=== PATIENT | male | born 1965 | race Caucasian/White ===

== ENCOUNTER 2019-11-16 09:03 | Emergency (ER) | payer MEDICAID, SELFPAY ==
--- NOTE | ~2019-11-16 | XR_ITS ---
EXAMINATION: XR chest 2V DATE: 11/16/2019 10:15 INDICATION: Cough. TECHNIQUE: Frontal and lateral views of the chest were obtained. COMPARISON: None. FINDINGS: The chest demonstrates clear lungs without pneumonia, pleural effusion, or pneumothorax. Th e heart size is normal. IMPRESSION: 1. No acute cardiopulmonary disease. Reviewed, dictated and finalized at location A. [employer]
[2019-11-16 09:24] VITALS: BP 132/65; PULSE 103; RESP 16; TEMP 37.6; O2SAT 95
--- NOTE | 2019-11-16 09:28 | ECG_ITS ---
Measurements Intervals [place] Rate: 102 P: 146 PA: 148 QRS: -14 QRSD: 104 T: 149 QT: 326 QTc: 425 Interpretive Statements ECTOPIC ATRIAL TACHYCARDIA POSSIBLE LEFT ATRIAL ENLARGEMENT BORDERLINE ST-T WAVE ABNORMALITY- LATERAL LEADS BASELINE ARTIFACT- I, III, AVL, AVF ABNORMAL ECG Electronically Signed On 11-16-2019 9:38:44 [employer] by Suraj Her D.O.
[2019-11-16 09:51] VITALS: PULSE 97; RESP 18
[2019-11-16] MEDS: IPRATROPIUM BR 0.02% INH SOLN 0.5 MG/2.5 ML VIAL INHALATION (09:51)
[2019-11-16] MEDS: ALBUTEROL SULFATE NEB 2.5 MG/0.5 ML INH 5 MG INHALATION (09:51)
[2019-11-16 09:57] LABS: Basophils Absolute Auto 0.1 K/mm3 (0.0-0.1); Basophils Percent Auto 0.7 % (0.2-1.2); Eosinophils Absolute Auto 0.2 K/mm3 (0-0.3); Eosinophils Percent Auto 2.1 % (0-4.4); Hematocrit 43.5 % (42.0-52.0); Hemoglobin 13.9 g/dL (14.0-18.0); Immature Granulocyte Absolute 0.04 K/mm3 (0.00-0.031); Immature Granulocyte Percent A 0.5 % (0-0.5); Lymphocytes Absolute Auto 1.01 K/mm3 (0.9-3.2); Lymphocytes Percent Auto 12.3 % (18.3-44.2); Mean Corpuscular Hemoglobin 28.5 pg (26-34); Mean Corpuscular Volume 89.3 fl (80-100); Monocytes Absolute Auto 0.8 K/mm3 (0.1-0.6); Monocytes Percent Auto 10.1 % (2.6-8.5); Neutrophils Absolute Auto 6.1 K/mm3 (1.3-6.7); Neutrophils Percent Auto 74.3 % (45.5-73.1); Platelet Count Result 242 k/mm3 (150-375); Red Blood Count 4.87 M/mm3 (4.6-6.20); Red Cell Distribution Width 14.2 % (11.5-14.5); White Blood Count 8.2 K/mm3 (4.5-10.0)
[2019-11-16 10:00] VITALS: PULSE 99; RESP 18
[2019-11-16 10:13] LABS: Alanine Aminotransferase 19 U/L (4-50); Albumin Level 4.1 g/dL (3.5-5.1); Alkaline Phosphatase 74 U/L (38-126); Aspartate Amino Transferase 24 U/L (17-59); Bilirubin,Total 0.6 mg/dL (0.2-1.3); Blood Urea Nitrogen 12 mg/dL (9-20); Calcium 8.9 mg/dL (8.4-10.2); Carbon Dioxide 29 mmol/L (22-30); Chloride 98 mmol/L (98-107); Estimated CRCL calculation 175 ml/min; Estimated Glomerular Filt Rate > 60; Glucose 111 mg/dL (75-110); Potassium 4.1 mmol/L (3.4-5.0); Sodium 136 mmol/L (137-145)
[2019-11-16 10:21] LABS: NT Pro B Type Natriuretic Pept 27 PG/ML (5-100)
[2019-11-16 10:24] LABS: Troponin I < 0.012 ng/mL (0.000-0.034)
--- NOTE | 2019-11-16 17:28 | ED.SOB ---
HPI - SOB/Dyspnea General Chief Complaint: Shortness of Breath/Dyspnea Stated Complaint: cough, fever Time Seen by Provider: 11/16/19 09:12 Source: patient Mode of arrival: ambulatory Limitations: no limitations History of Present Illness HPI Narrative: Patient presents with chief complaint of feeling short of breath with exertion over the past few weeks. Patient states that he is a smoker. He also reports pain across his chest but only when he bends over to tie his shoes. Patient refers to the pain as his fat pain. He states that it resolves as soon as he sits up. Patient denies any chest pain at this time. Patient reports feelings of chest congestion. Patient states that he has not seen a doctor in approximately 10 years since his previous primary care physician . Patient states that he feels short of breath with exertion such as walking multiple blocks at a time. Otherwise he does not feel short of breath. Patient reports having some occasional swelling to his lower extremities which resolves with elevation and rest. Patient denies any chronic medical diagnoses or daily medications. Related Data Home Medications Medication Instructions Recorded Confirmed No Home Medications 11/16/19 11/16/19 Allergies Allergy/AdvReac Type Severity Reaction Status Date / Time codeine Allergy Itching Verified 11/16/19 09:28 Review of Systems Review of Systems: Narrative: CONSTITUTIONAL: Denies fever, chills, or sweats. EYES: Denies visual changes, redness, or discharge. ENT: Reports congestion denies rhinorrhea, sore throat, or otalgia. CARDIOVASCULAR: Denies chest pain, palpitations, or edema. RESPIRATORY: Reports cough and exertional dyspnea. GASTROINTESTINAL: Denies abdominal pain, nausea, vomiting, or diarrhea. GENITOURINARY: Denies dysuria or hematuria. SKIN: Denies rash or itching. MUSCULOSKELETAL: Denies back pain, joint pain, or myalgia. NEUROLOGIC: Denies headache, numbness, dizziness, or weakness. PSYCHIATRIC: Denies anxiety or depression. [facility] Social History Social History (Updated 11/16/19 @ 17:33 by Rebeca English PA-C) Smoking status: Current every day smoker Alcohol use details: occasional Other substance usage details: none Exam Narrative: Exam Narrative: GENERAL: Well-appearing, well-nourished, and in no acute distress. Patient is obese. HEAD: Normocephalic, atraumatic. EYES: PERRLA and EOMI. ENT: Nares clear, no rhinorrhea or epistaxis. Mucous membranes moist. Oropharynx without tonsillar hypertrophy exudate or other lesions. Bilateral TMs pearly miller nonbulging NECK: Supple. No adenopathy or masses. No carotid bruits or JVD CHEST:No respiratory distress or tachypnea. Diffuse wheezing bilaterally. No rales or rhonchi HEART: Regular rate and rhythm. No murmur heard. Normal peripheral pulses. ABDOMEN: Soft, nontender, nondistended, normal active bowel sounds. EXTREMITIES: Normal range of motion. No pitting edema. Venous stasis changes noted without weeping blisters. No calf tenderness. SKIN: Warm, dry, no rash. NEURO: No focal deficits. Alert and oriented x3. PSYCH: Normal mood and affect. Course Course Emergency Course: Patient demanded to be signed out AMA before I could discuss with him the findings of his lab work and x-ray. Per nurse he ambulated out without issue and did not show any signs of respiratory distress at this time. Vital Signs Vital signs: Vital Signs Temperature 99.7 F H 11/16/19 09:24 Pulse Rate 103 H 11/16/19 09:24 Respiratory Rate 16 11/16/19 09:24 Blood Pressure 132/65 11/16/19 09:24 Pulse Oximetry 95 11/16/19 09:24 Temperature 99.7 F H 11/16/19 09:24 Pulse Rate 99 11/16/19 10:00 Respiratory Rate 18 11/16/19 10:00 Blood Pressure 132/65 11/16/19 09:24 Pulse Oximetry 95 11/16/19 09:24 MDM - SOB/Dyspnea MDM Narrative Medical decision making narrative: Working patient up for CHF, influenza, pneumonia. Patient i
== END 2019-11-16 11:07 | disposition left against medical advice (07) ==
LOC: ANHED 09:41
PROVIDERS: Physician Assistant; Emergency Provider Emergency Medicine
DX: J44.1 Chronic obstructive pulmonary disease with (acute) exacerbation (principal); F17.200 Nicotine dependence, unspecified, uncomplicated
CPT/HCPCS: 36415; 71046; 80053; 83880; 84484; 85025; 87804; 93005; 94640; 99284

== ENCOUNTER 2021-05-19 16:52 | Emergency (ER) | payer OTHER, SELFPAY ==
[2021-05-19 17:13] VITALS: BP 118/62; PULSE 95; RESP 20; TEMP 36.2; O2SAT 97
--- NOTE | 2021-05-19 17:14 | ED.MALEGU ---
HPI - Male Genitourinary General Chief complaint: Urogenital-Male Stated complaint: Side Pain Time Seen by Provider: 05/19/21 17:19 Source: patient and RN notes reviewed Mode of arrival: ambulatory Limitations: no limitations History of Present Illness HPI Narrative: 55-year-old male presents to the [facility] with complaints of right flank pain. States when he tried urinating he sees blood. Has a history of kidney stones. States the pain started this morning. Has taken 2 unknown pain pills from a friend which has helped with pain. But still having nausea and discomfort right CVA area radiating into the groin. Patient also reports that he was having pain in his lower back and thought he had to have a bowel movement, was unable to have a bowel movement. Reports nausea without vomiting. Trouble with urination. Denies abdominal pain, chest pain. Denies fevers. Related Data Home Medications Medication Instructions Recorded Confirmed No Home Medications 11/16/19 11/16/19 Allergies Allergy/AdvReac Type Severity Reaction Status Date / Time codeine Allergy Itching Verified 05/19/21 17:28 Review of Systems Review of Systems: All systems reviewed & are unremarkable except as noted in HPI and below Constitutional: Constitutional: Reports no additional constitutional complaints, Denies chills and Denies fever(s) Eyes: Eyes: Reports no additional eye complaints ENT: Reports system reviewed and no additional complaints, except as documented Respiratory: Respiratory: Reports no additional respiratory complaints Gastrointestinal: Gastrointestinal: Reports as per HPI, Denies abdominal pain and Reports nausea Genitourinary: Genitourinary: Reports as per HPI, Reports hematuria and Reports dysuria Musculoskeletal: Musculoskeletal: Reports as per HPI and Reports back pain (Right lower into right groin) Integumentary/Breasts: Skin/Breast: Reports system reviewed and no additional complaints, except as docu Neurologic: Reports system reviewed and no additional complaints, except as documented Psychiatric: Psychiatric: Reports no additional psychiatric complaints Allergic/Immunologic: Allergic/Immunologic: Reports no additional allergic/immunologic complaints PMF Past Medical History Medical History (Updated 05/19/21 @ 17:37 by Coleen Lee) Drug use Clean since 2019 Kidney stone Social History Social History Smoking status: Current every day smoker Alcohol use details: occasional Other substance usage details: none Comments Patient states she has not seen a doctor in 20 years. At the time of my signature, I reviewed and agree with the nursing past medical, surgical, social, and family history. There is no relevant family history pertinent to the patient complaint. Exam Const: General: no acute distress and alert Nutritional Appearance: well nourished and obese morbidly obese Orientation/consciousness: patient oriented x3 HENMT: Head: normal to inspection Neck: Neck: normal visual inspection, no lymphadenopathy and no meningeal signs Chest: Chest palpation & inspection: normal inspection of the chest Resp: Effort & Inspection: normal respiratory effort and no use of accessory muscles Auscultation: clear to auscultation bilaterally Cardio: Rate: regular rate Rhythm: regular rhythm GI: GI Palp: Yes Soft to palpation, No Tenderness to palpation present (GI) and No Guarding due to palpation present (GI) : General: Yes CVA tenderness on the right Back/Spine/Pelvis: Back: CVA tenderness (Right) Skin: General skin exam: normal color Rashes: no rashes Neuro: General: patient oriented x3, moves all extremities, no meningeal signs and no focal motor deficits Speech: normal speech Gait exam (Neuro): Normal gait present Extrem: General: normal to inspection Psych: Appearance: grossly normal and well kempt Mental Status: mental status gr
== END 2021-05-19 17:35 | disposition short-term general hospital (02) ==
PROVIDERS: Emergency Provider Nurse Practitioner
DX: R10.9 Unspecified abdominal pain (principal)
CPT/HCPCS: 81003; 99212; G0463

== ENCOUNTER 2021-05-19 17:50 | Emergency (ER) | payer OTHER, SELFPAY ==
--- NOTE | ~2021-05-19 | CT_ITS ---
EXAMINATION: CT abdomen pelvis wo con DATE: 05/19/2021 22:25 INDICATION: Kidney stone presenting with hematuria and right flank pain. TECHNIQUE: Computed tomography (CT) of the abdomen and pelvis was performed without intravenous contr ast. Automated exposure control and iterative reconstruction technique were employed. The dose-length product was 1587.67 mGy-cm. COMPARISON: None FINDINGS: Minimal atelectasis at the right posterior sulcus. Heart size is normal. No pericardial or pleural ef fusion. Multiple calcified gallstones within the normal-appearing gallbladder. Liver, spleen, pancrea s, right kidney and bilateral adrenal glands are normal. 11 mm stone at the left renal pelvis and 5 m m stone at a lower pole calyx of the left kidney. No stones seen along the course of the normal appea ring ureters. 2-3 mm stone at the bladder near but appearing slightly more caudal the right ureterove sicular junction suggests a recently passed stone. No hydroureter or hydronephrosis. Suggestion of pr ior prostatectomy. Bowels including the appendix are normal. No free intraperitoneal gas or fluid. No pathologically enlarged abdominal or pelvic lymphadenopathy. Severe thoracolumbar spondylosis. IMPRESSION: 1. Left nephrolithiasis and 2-3 mm stone at the bladder near but appearing slightly more caudal than the right ureterovesicular junction suggesting a recently passed stone. No hydroureter or hydronephro sis. Line 2. Cholelithiasis. Reviewed, dictated and finalized at location A. IMPRESSION: 1. Left nephrolithiasis and 2-3 mm stone at the bladder near but appearing slig htly more caudal than the right ureterovesicular junction suggesting a recently passed stone. No hydroureter or hydronephrosis. Line 2. Cholelithiasis.
[2021-05-19 18:32] VITALS: BP 155/110; PULSE 92; RESP 18; TEMP 36.7; O2SAT 97
[2021-05-19 18:44] LABS: Basophils Absolute Auto 0.1 K/mm3 (0.0-0.1); Basophils Percent Auto 0.5 % (0.2-1.2); Eosinophils Absolute Auto 0.1 K/mm3 (0-0.3); Hematocrit 50.3 % (42.0-52.0); Hemoglobin 15.9 g/dL (14.0-18.0); Immature Granulocyte Absolute 0.05 K/mm3 (0.00-0.031); Immature Granulocyte Percent A 0.4 % (0-0.5); Lymphocytes Absolute Auto 2.39 K/mm3 (0.9-3.2); Lymphocytes Percent Auto 17.3 % (18.3-44.2); Mean Corpuscular HGB Conc 31.6 g/dl (32-36); Mean Corpuscular Hemoglobin 29.1 pg (26-34); Mean Platelet Volume 9.5 fl (7.4-10.4); Monocytes Absolute Auto 0.7 K/mm3 (0.1-0.6); Monocytes Percent Auto 5.2 % (2.6-8.5); Neutrophils Absolute Auto 10.5 K/mm3 (1.3-6.7); Neutrophils Percent Auto 75.6 % (45.5-73.1); Platelet Count Result 253 k/mm3 (150-375); Red Blood Count 5.47 M/mm3 (4.6-6.20); White Blood Count 13.8 K/mm3 (4.5-10.0)
[2021-05-19 18:56] LABS: Anion Gap 5 mmol/L (8-16); Blood Urea Nitrogen 14 mg/dL (9-20); Carbon Dioxide 30 mmol/L (22-30); Chloride 101 mmol/L (98-107); Estimated CRCL calculation 143 ml/min; Estimated Glomerular Filt Rate > 60; Glucose 109 mg/dL (65-110); Potassium 3.8 mmol/L (3.4-5.0); Sodium 136 mmol/L (137-145)
[2021-05-19 18:58] LABS: Add Urine Microscopic? YES; Appearance Urine Cloudy (Clear); Bilirubin Urine Negative (Negative); Blood Urine 3+ (Negative); Color Urine Yellow (Yellow); Glucose Urine UA Negative (Negative); Ketones Urine Negative (Negative); Leukocyte Esterase Ur Negative LEU/UL (Negative); Nitrate Urine Negative (Negative); Protein Urine 2+ mg/dL (Negative); RBC Urine >75 /hpf (0-2); Specific Grav Ur 1.024 (1.001-1.035)
--- NOTE | 2021-05-19 22:41 | ED.ABDPAIN ---
HPI - Abdominal Pain General Chief Complaint: Abdominal Pain Stated Complaint: right flank pain Time Seen by Provider: 05/19/21 20:40 Source: patient and RN notes reviewed Mode of arrival: ambulatory Limitations: no limitations History of Present Illness HPI narrative: Patient is 55 years old white male presents with pain at the right flank area started at 10 AM today, associated with nausea and radiation of pain to right lower quadrant. Patient had history of kidney stone, patient also reports some blood in the urine today. Patient denies any fever, Related Data Allergies Allergy/AdvReac Type Severity Reaction Status Date / Time codeine Allergy Itching Verified 05/19/21 20:26 Review of Systems Review of Systems: CONSTITUTIONAL: Denies fever, chills, or sweats. EYES: Denies visual changes, redness, or discharge. ENT: Denies rhinorrhea, congestion, sore throat, or otalgia. CARDIOVASCULAR: Denies chest pain, palpitations, or edema. RESPIRATORY: Denies cough or dyspnea. GASTROINTESTINAL: Denies abdominal pain, nausea, vomiting, or diarrhea. GENITOURINARY: Denies dysuria or hematuria. SKIN: Denies rash or itching. MUSCULOSKELETAL: Denies back pain, joint pain, or myalgia. NEUROLOGIC: Denies headache, numbness, or weakness. PSYCHIATRIC: Denies anxiety or depression. [facility] Past Medical History Medical History Drug use Clean since 2019 Kidney stone Social History Social History Smoking status: Current every day smoker Alcohol use details: occasional Other substance usage details: none Exam Narrative: General appearance: Well-developed, well-nourished Skin: Normal color Head: Normocephalic, nontraumatic Eyes: Clear conjunctiva ENT: Oropharynx normal, ears normal, nose normal Neck: Supple, nontender Chest and respiratory: Airway patent, no respiratory distress, no accessory muscle use Heart: Regular rate/rhythm Abdomen: Soft, mild tenderness right flank, no organomegaly, quiet bowel sounds Vascular: Normal peripheral pulses, normal capillary refill. 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 Labs, CT abdomen pelvis without contrast, UA ordered. Work-up showed that patient had kidney stone distal to the ureterovesicular junction which high likely in the bladder right now. Patient pain resolved, Differential Diagnosis Differential diagnosis: Likely calculus of kidney, constipation and diverticulitis Lab Data Result diagrams: 05/19/21 18:38 05/19/21 18:38 Labs: Lab Results 05/19/21 05/19/21 05/19/21 Range/Units 18:38 18:38 18:44 WBC 13.8 H (4.5-10.0) K/mm3 RBC 5.47 (4.6-6.20) M/mm3 Hgb 15.9 (14.0-18.0) g/dL Hct 50.3 (42.0-52.0) % MCV 92.0 (80-100) fl MCH 29.1 (26-34) pg MCHC 31.6 L (32-36) g/dl RDW 14.0 (11.5-14.5) % Plt Count 253 (150-375) k/mm3 MPV 9.5 (7.4-10.4) fl Immature Gran % (A
[2021-05-19] MEDS: ONDANSETRON INJ 4 MG/2 ML VIAL IV PUSH (23:11)
[2021-05-19] MEDS: KETOROLAC 30 MG/ML VIAL (*BKC) IV PUSH (23:11)
[2021-05-19] MEDS: TAMSULOSIN HCL 0.4 MG CAPSULE PO (23:11)
== END 2021-05-19 23:20 | disposition home or self-care (01) ==
PROVIDERS: Emergency Provider Emergency Medicine
DX: N20.0 Calculus of kidney (principal); R31.9 Hematuria, unspecified; Z87.442 Personal history of urinary calculi; F17.200 Nicotine dependence, unspecified, uncomplicated
CPT/HCPCS: 36415; 74176; 80048; 81001; 81003; 85025; 87077; 87086; 87088; 87186; 96374; 96375; 99284; A9270; J1885; J2405

== ENCOUNTER 2022-04-10 06:40 | Emergency (ER) | payer OTHER, SELFPAY ==
[2022-04-10] VITALS (7 sets, daily range): BP systolic 153–163; BP diastolic 83–98; PULSE 73–92; RESP 16–20; TEMP 36.6; O2SAT 93–100
--- NOTE | ~2022-04-10 | CT_ITS ---
EXAMINATION: CT abdomen pelvis wo con DATE: 04/10/2022 07:53 INDICATION: Left flank pain. TECHNIQUE: Computed tomography (CT) of the abdomen and pelvis was performed without intravenous contr ast. The dose-length product was 1543.80 mGy-cm. Automated exposure control and iterative reconstruct ion technique were employed. COMPARISON: CT dated 05/19/2021 FINDINGS: Lung bases are unremarkable. Heart size normal. No significant pleural or pericardial effus ion. Fatty infiltration of the liver. There are gallstones. The spleen, pancreas, adrenal glands and right kidney are unremarkable. There are left renal stones, largest in the left renal pelvis measurin g 1.4 x 1 cm. Bladder is unremarkable. No ureteral stones or hydronephrosis. Nonobstructive bowel gas pattern. Normal appendix. No abnormal pelvic masses or fluid collections. Moderate-severe lower thor acic and lumbar spondylosis. No acute osseous abnormality. IMPRESSION: 1. Left nephrolithiasis. 2: Cholelithiasis. Reviewed, dictated and finalized at location A.
[2022-04-10 06:58] LABS: Basophils Absolute Auto 0.1 K/mm3 (0.0-0.1); Basophils Percent Auto 0.5 % (0.2-1.2); Eosinophils Absolute Auto 0.2 K/mm3 (0-0.3); Immature Granulocyte Absolute 0.04 K/mm3 (0.00-0.031); Immature Granulocyte Percent A 0.4 % (0-0.5); Lymphocytes Absolute Auto 3.05 K/mm3 (0.9-3.2); Lymphocytes Percent Auto 27.8 % (18.3-44.2); Mean Corpuscular HGB Conc 31.9 g/dl (32-36); Mean Corpuscular Hemoglobin 29.5 pg (26-34); Mean Corpuscular Volume 92.5 fl (80-100); Mean Platelet Volume 9.3 fl (7.4-10.4); Monocytes Absolute Auto 0.7 K/mm3 (0.1-0.6); Monocytes Percent Auto 6.4 % (2.6-8.5); Neutrophils Absolute Auto 6.9 K/mm3 (1.3-6.7); Neutrophils Percent Auto 62.9 % (45.5-73.1); Platelet Count Result 231 k/mm3 (150-375); Red Blood Count 5.08 M/mm3 (4.6-6.20); Red Cell Distribution Width 14.5 % (11.5-14.5)
[2022-04-10 07:11] LABS: Alanine Aminotransferase 21 U/L (6-50); Albumin Level 4.2 g/dL (3.5-5.1); Alkaline Phosphatase 75 U/L (38-126); Anion Gap 1 mmol/L (8-16); Aspartate Amino Transferase 25 U/L (17-59); Bilirubin,Total 0.6 mg/dL (0.2-1.3); Blood Urea Nitrogen 12 mg/dL (9-20); Calcium 8.8 mg/dL (8.4-10.2); Carbon Dioxide 34 mmol/L (22-30); Chloride 105 mmol/L (98-107); Estimated Glomerular Filt Rate > 60; Glucose 115 mg/dL (65-110); Lipase 58 U/L (23-300); Potassium 4.2 mmol/L (3.4-5.0); Sodium 140 mmol/L (137-145)
[2022-04-10 07:15] LABS: Appearance Urine Clear (Clear); Bilirubin Urine Negative (Negative); Blood Urine 2+ (Negative); Color Urine Yellow (Yellow); Glucose Urine UA Negative (Negative); Ketones Urine Negative (Negative); Leukocyte Esterase Ur Negative LEU/UL (Negative); Nitrate Urine Negative (Negative); Protein Urine 1+ mg/dL (Negative); Specific Grav Ur 1.025 (1.001-1.035); Urobilinogen Urine 0.2 mg/dL (<2.0)
[2022-04-10 07:22] LABS: Mucus Urine Rare /lpf; RBC Urine >75 /hpf (0-2); Squamous Epithelial Cell Urine Rare /hpf (Few)
[2022-04-10 07:24] LABS: Add Urine Microscopic? YES
--- NOTE | 2022-04-10 07:39 | ED.ABDPAIN ---
HPI - Abdominal Pain General Chief Complaint: Abdominal Pain Stated Complaint: left flank pain Time Seen by Provider: 04/10/22 07:38 Source: patient Mode of arrival: ambulatory Limitations: no limitations History of Present Illness HPI narrative: 56 years old white male morbidly obese history of kidney stone presents with left lower quadrant pain similar to his previous history of kidney stone started 2:30 AM. Radiating to left testicle. He denies any nausea, vomiting, hematuria, fever, chills. Related Data Allergies Allergy/AdvReac Type Severity Reaction Status Date / Time codeine Allergy Itching Verified 04/10/22 06:42 Review of Systems Review of Systems: All systems reviewed & are unremarkable except as noted in HPI and below PMFSH Past Medical History Medical History Drug use Clean since 2019 Kidney stone Social History Social History Smoking status: Current every day smoker Alcohol use details: occasional Other substance usage details: none Exam Narrative: General appearance: Well-developed, well-nourished. Patient is morbidly obese, no significant other at the bedside Skin: Normal color Head: Normocephalic, nontraumatic Eyes: Clear conjunctiva ENT: Oropharynx normal, ears normal, nose normal Neck: Supple, nontender Chest and respiratory: Airway patent, no respiratory distress, no accessory muscle use Heart: Regular rate/rhythm Abdomen: Soft, mild to moderate tenderness left flank and left lower quadrant no organomegaly, quiet bowel sounds Vascular: Normal peripheral pulses, normal capillary refill. 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 Work-up did not show any significant finding to explain his condition except hematuria. Passed kidney stone versus urinary tract infection is my concern. Patient will be discharged on Cipro to follow-up with urologist in 4 days. Vital Signs Vital signs: Vital Signs Temperature 36.6 C 04/10/22 06:40 Pulse Rate 73 04/10/22 06:40 Respiratory Rate 20 04/10/22 06:40 Blood Pressure 163/98 H 04/10/22 06:40 Pulse Oximetry 100 04/10/22 06:40 Oxygen Delivery Room Air 04/10/22 06:40 Temperature 36.6 C 04/10/22 06:40 Pulse Rate 92 04/10/22 08:47 Respiratory Rate 16 04/10/22 08:47 Blood Pressure 153/83 H 04/10/22 08:47 Pulse Oximetry 93 04/10/22 08:47 Oxygen Delivery Room Air 04/10/22 06:40 MDM - Abdominal Pain Lab Data Result diagrams: 04/10/22 06:52 04/10/22 06:52 Labs: Lab Results 04/10/22 04/10/22 04/10/22 Range/Units 06:52 06:52 07:05 WBC 11.0 H (4.5-10.0) K/mm3 RBC 5.08 (4.6-6.20) M/mm3 Hgb 15.0 (14.0-18.0) g/dL Hct 47.0 (42.0-52.0) % MCV 92.5 (80-100) fl MCH 29.5 (26-34) pg MCHC 31.9 L (32-36) g/dl RDW 14.5 (11.5-14.5) % Plt Count 231 (150-375) k/mm3 MPV 9.3 (7.4-10.4) fl Immature Gran % (Auto) 0.4 (0-0.5) % Neut % (Auto) 62.9 (45.5-73.1) % Lymph % (Auto) 27.8 (18.3-44.2) % [place] % (Auto) 6.4 (2.6-8.5) % Eos % (Auto) 2.0 (0-4.4) % Baso % (Auto) 0.5 (0.2-1.2) % Lymph # (Auto) 3.05 (0.9-3.2) K/mm3 [place] # (Auto) 0.7 H (0.1-0.6) K/mm3 Eos # (Auto) 0.2 (0-0.3) K/mm3 Baso # (Auto) 0.1 (0.0-0.1) K/mm3 Abs Immat Gran (auto) 0.04 H (0.00-0.031) K/mm3 Absolute Neuts (auto)
[2022-04-10] MEDS: SODIUM CHLORIDE 0.9% IV 1,000 ML 999 ML IV CONT (07:48)
--- NOTE | 2022-04-10 07:53 | PC.NURSE ---
Patient to CT
[2022-04-10] MEDS: MORPHINE SULFATE (*CRX) 4 MG/ML INJ IV PUSH (08:05)
[2022-04-10] MEDS: ONDANSETRON INJ 4 MG/2 ML VIAL IV PUSH (08:05)
== END 2022-04-10 09:42 | disposition home or self-care (01) ==
PROVIDERS: Family Medicine; Emergency Provider Emergency Medicine
DX: R10.32 Left lower quadrant pain (principal); R31.9 Hematuria, unspecified; F17.210 Nicotine dependence, cigarettes, uncomplicated
CPT/HCPCS: 36415; 74176; 80053; 81001; 83690; 85025; 96361; 96374; 96375; 99284; J2270; J2405; J7030

== ENCOUNTER 2022-10-07 08:36 | Emergency (ER) | payer OTHER, SELFPAY ==
--- NOTE | 2022-10-07 08:47 | ED.URI ---
HPI - URI/Sore Throat General Chief Complaint: Upper Respiratory Infection Stated Complaint: uri Time Seen by Provider: 10/07/22 08:47 Source: patient Mode of arrival: ambulatory Limitations: no limitations History of Present Illness HPI Narrative: Gopi is a 57-year-old male patient presenting to the clinic today with complaints of nasal congestion, sinus pain, and cough x1 month He reports he has also lost taste and smell. He has done 2 at home COVID test and they were both negative. MD elicited complaint: sore throat and nasal congestion Related Data Allergies Allergy/AdvReac Type Severity Reaction Status Date / Time codeine Allergy Itching Verified 04/10/22 06:42 Review of Systems Review of Systems: Pertinent positives per HPI. Patient denies any fever, chills, rash, headache, visual changes, dizziness, cough, shortness of breath, chest pain, palpitations, nausea, vomiting, diarrhea, constipation, abdominal pain, or any urinary issues. [facility] Past Medical History Medical History Drug use Clean since 2019 Kidney stone Social History Social History Smoking status: Current every day smoker Alcohol use details: occasional Other substance usage details: none Comments At the time of my signature, I reviewed and agree with the nursing past medical, surgical, social, and family history. There is no relevant family history pertinent to the patient complaint. Exam Narrative: General: Well-developed, morbidly obese, in no apparent distress Head: Normocephalic, atraumatic Eyes: Pupils equally round and reactive to light bilaterally, EOM intact, sclera and conjunctive clear, no discharge, lids normal Ears: TMs intact and clear, ear canals clear, no drainage, grossly hearing normal. Nose: Nares patent, yellow /green nasal discharge, severe inflammation, maxillary sinus tenderness. Mouth: Oral pharynx without lesions or masses, good dentition, MMM. postnasal drip Neck: Supple, trachea midline, no enlargement of anterior or posterior cervical nodes, no thyroid masses or goiter palpable. Cardio: Regular rate and rhythm, s1 and s2 normal, no murmur appreciated. Resp: Clear to auscultation bilaterally, no rhonchi, rales, wheezing or rubs Course Course Emergency Course: Portions of this record may have been created with voice recognition software. Level of Care: Express Care Visit Vital Signs Vital signs: Vital Signs Temperature 36.2 C L 10/07/22 08:51 Pulse Rate 76 10/07/22 08:51 Respiratory Rate 16 10/07/22 08:51 Blood Pressure 139/79 10/07/22 08:51 Pulse Oximetry 99 10/07/22 08:51 Oxygen Delivery Room Air 10/07/22 08:51 Temperature 36.2 C L 10/07/22 08:51 Pulse Rate 76 10/07/22 08:51 Respiratory Rate 16 10/07/22 08:51 Blood Pressure 139/79 10/07/22 08:51 Pulse Oximetry 99 10/07/22 08:51 Oxygen Delivery Room Air 10/07/22 08:51 Vital signs reviewed MDM - URI/Sore Throat MDM Narrative Medical decision making narrative: At the time of visit patient is resting comfortably on the exam table. I suspect patient has acute bacterial rhinosinusitis and will place him on prescription for Augmentin and prednisone. Supportive measures were discussed with the patient he voiced understanding of discharge instructions and agrees to treatment plan Differential Diagnosis Differential diagnosis: Likely upper respiratory infection, otitis media, sinusitis, viral infection, bronchitis, influenza, pharyngitis and other ( COVID) Discharge Plan Discharge Clinical Impression: Acute bacterial rhinosinusitis Patient Disposition: Home, Self-Care Condition: Stable Instructions: Antibiotic Form, Rhinosinusitis (ED) Additional Instructions: Take prescription medications only as prescribed- prednisone and Augmentin Increase fluids and stay we
[2022-10-07 08:51] VITALS: BP 139/79; PULSE 76; RESP 16; TEMP 36.2; O2SAT 99
== END 2022-10-07 09:01 | disposition home or self-care (01) ==
PROVIDERS: Emergency Provider Nurse Practitioner Family
DX: J01.90 Acute sinusitis, unspecified (principal); B96.89 Other specified bacterial agents as the cause of diseases classified elsewhere; F17.210 Nicotine dependence, cigarettes, uncomplicated
CPT/HCPCS: 99213; G0463

== ENCOUNTER 2023-05-19 19:37 | Emergency (ER) | payer OTHER, SELFPAY ==
--- NOTE | ~2023-05-19 | XR_ITS ---
EXAMINATION: XR chest 2V Exam Date/Time: 05/19/2023 19:55 CDT HISTORY: SOB Comparison: 11/16/2019; CT abdomen pelvis 04/10/2022. RESULT: Lines, tubes, and devices: None. Lungs and pleura: Clear. Cardiomediastinal silhouette: Stable. Other: No acute osseous or upper abdominal finding. IMPRESSION: No acute cardiopulmonary process. Reviewed, dictated and finalized at location K.
[2023-05-19 19:40] VITALS: BP 121/69; PULSE 85; RESP 20; TEMP 36.6; O2SAT 98
[2023-05-19 19:46] VITALS: BP 121/69; PULSE 85; RESP 20; TEMP 36.6; O2SAT 98
--- NOTE | 2023-05-19 20:07 | ED.URI ---
HPI - URI/Sore Throat General Chief Complaint: Upper Respiratory Infection Stated Complaint: SOB Time Seen by Provider: 05/19/23 20:04 Source: patient and RN notes reviewed Mode of arrival: ambulatory Limitations: no limitations History of Present Illness HPI Narrative: Patient presents today complaining of 3 day history of a productive cough, shortness of breath, fever up to 101.3. States symptoms have worsened since onset. States he has been sleeping sitting up as a his shortness of breath is worse when he lays flat to sleep. He has been taking Mucinex and Advil with mild relief. Smokes 2 packs per day. Denies history of asthma or COPD. Related Data Home Medications Medication Instructions Recorded Confirmed cetirizine 10 mg tablet mg 05/19/23 fluticasone propionate 50 intranasal 05/19/23 mcg/actuation nasal spray,suspension Allergies Allergy/AdvReac Type Severity Reaction Status Date / Time codeine Allergy Itching Verified 05/19/23 19:46 Review of Systems Review of Systems: CONSTITUTIONAL: Denies body aches, chills, or sweats.+ fever EYES: Denies visual changes, redness, or discharge. ENT: Denies rhinorrhea, congestion, sore throat, or otalgia. CARDIOVASCULAR: Denies chest pain, palpitations, or edema. RESPIRATORY: + cough, shortness of breath GASTROINTESTINAL: Denies abdominal pain, nausea, vomiting, or diarrhea. GENITOURINARY: Denies dysuria or hematuria. SKIN: Denies rash, itching, or wounds. MUSCULOSKELETAL: Denies back pain, joint pain, or myalgia. NEUROLOGIC: Denies headache, numbness, tingling, or weakness. PSYCH: Denies depression or anxiety. [facility] Past Medical History Medical History Drug use Clean since 2019 Kidney stone Social History Social History Smoking status: Current every day smoker Alcohol use details: occasional Other substance usage details: none Comments At time of signature, I have reviewed and agree with nursing past medical, surgical, social and family history unless otherwise noted. Please see nursing chart for further information. There is no relevant family history pertinent to the presenting complaint Exam Narrative: GENERAL: Mildly ill appearing, well-nourished, and in no acute distress. HEAD: Normocephalic, atraumatic. EYES: EOMI. No redness or drainage. Conjunctivae normal. ENT: Mucous membranes pink and moist. Nares clear. No rhinorrhea. TMs normal bilaterally. Throat normal. Uvula midline. NECK: Normal AROM. Supple. No lymphadenopathy. CHEST: No respiratory distress. Wheezing in bilateral lower lobes, rhonchi throughout. HEART: Regular rate and rhythm. No murmur appreciated. Normal peripheral pulses. ABDOMEN: Soft, nontender, nondistended, normal active bowel sounds. EXTREMITIES: Normal range of motion. No edema. SKIN: Warm, dry, no rash. Capillary refill normal. Normal skin turgor. NEURO: No focal deficits. Alert and oriented x3. Gait steady. PSYCH: Normal affect. No signs of depression or anxiety. Course Course Emergency Course: 2043-courses decreased, wheezing is slightly louder than before treatment. Patient states DuoNeb has helped him feel that he can take a deeper breath. Level of Care: Express Care Visit Vital Signs Vital signs: Vital Signs Temperature 97.9 F 05/19/23 19:40 Pulse Rate 85 05/19/23 19:40 Respiratory Rate 20 05/19/23 19:40 Blood Pressure 121/69 05/19/23 19:40 Pulse Oximetry 98 05/19/23 19:40 Oxygen Delivery Room Air 05/19/23 19:40 Temperature 97.9 F 05/19/23 19:46 Pulse Rate 85 05/19/23 19:46 Respiratory Rate 20 05/19/23 19:46 Blood Pressure 121/69 05/19/23 19:46 Pulse Oximetry 98 05/19/23 19:46 Oxygen Delivery Room Air 05/19/23 19:46 Reviewed. Pt has been instructed to follow up with his PCP regarding his elevated blood pressur
[2023-05-19] MEDS: ALBUTEROL SULFATE NEB 2.5 MG/3 ML INH INHALATION (20:12)
[2023-05-19] MEDS: IPRATROPIUM BR 0.02% INH SOLN 0.5 MG/2.5 ML VIAL INHALATION (20:12)
== END 2023-05-19 20:49 | disposition home or self-care (01) ==
PROVIDERS: Emergency Provider Nurse Practitioner; PCP Nurse Practitioner
DX: J40 Bronchitis, not specified as acute or chronic (principal); B34.9 Viral infection, unspecified; Z20.822 Contact with and (suspected) exposure to COVID-19; F17.200 Nicotine dependence, unspecified, uncomplicated
CPT/HCPCS: 71046; 87426; 94640; 99213; C9803; G0463

== ENCOUNTER 2024-07-10 08:57 | Emergency (ER) | payer OTHER, SELFPAY ==
--- NOTE | ~2024-07-10 | XR_ITS ---
XR chest 2V Ordering provider: Crista Jolley PA-C History: 58 years Male with . SOB COUGH, HX PE, BILATERAL LEG SWELLING . Comparison: May 19, 2023 FINDINGS: MEDIASTINUM: The cardiac silhouette is not enlarged. Slightly congestive desean. LUNGS: No infiltrates, effusions or pneumothorax. Prominent markings in the lower lobes. Early pneumonia is not excluded. OTHER: No free air under the diaphragm. Degenerative changes of the spine. IMPRESSION: Prominent markings in the lower lobes. Early pneumonia cannot be excluded. Follow-up advised. Reviewed, dictated and finalized at location A. IMPRESSION: Prominent markings in the lower lobes. Early pneumonia cannot be excluded. Foll ow-up advised.
--- NOTE | ~2024-07-10 | US_ITS ---
RIGHT LOWER EXTREMITY VENOUS ULTRASOUND Ordering provider: Crista Jolley PA-C History: . edema . Comparison: None. FINDINGS: --COMMON FEMORAL: Patent and free of thrombus. Normal compressibility, phasic flow and augmentation. --PROXIMAL SUPERFICIAL FEMORAL: Patent and free of thrombus. Normal compressibility, phasic flow and augmentation. --DISTAL SUPERFICIAL FEMORAL: Patent and free of thrombus. Normal compressibility, phasic flow and au gmentation. --POPLITEAL: Patent and free of thrombus. Normal compressibility, phasic flow and augmentation. --POSTERIOR TIBIAL: Patent and free of thrombus. Normal compressibility, phasic flow and augmentation . IMPRESSION: Negative right lower extremity venous US. No deep vein thrombosis. Reviewed, dictated and finalized at location A.
[2024-07-10 09:02] VITALS: BP 158/57; PULSE 85; RESP 22; O2SAT 96
--- NOTE | 2024-07-10 09:09 | ECG_ITS ---
Test Date: 2024-07-10 10:01:08 Measurements Intervals [place] Rate: 73 P: 53 [place]: 191 QRS: 3 QRSD: 92 T: 38 QT: 388 QTc: 428 Interpretive Statements SINUS RHYTHM BASELINE ARTIFACT- I, III, AVR, AVL, AVF NORMAL ECG No previous ECG available for comparison Electronically Signed On 07-10-2024 11:05:55 CDT by Suraj Her D.O.
--- NOTE | 2024-07-10 09:22 | PC.NURSE ---
Patient to US
[2024-07-10 10:00] LABS: Basophils Absolute Auto 0.1 K/mm3 (0.0-0.1); Basophils Percent Auto 0.6 % (0.2-1.2); Eosinophils Absolute Auto 0.4 K/mm3 (0-0.3); Eosinophils Percent Auto 4.6 % (0-4.4); Hematocrit 43.1 % (42.0-52.0); Hemoglobin 14.3 g/dL (14.0-18.0); Immature Granulocyte Absolute 0.04 K/mm3 (0.00-0.031); Immature Granulocyte Percent A 0.5 % (0-0.5); Lymphocytes Absolute Auto 2.81 K/mm3 (0.9-3.2); Mean Corpuscular HGB Conc 33.2 g/dl (32-36); Mean Corpuscular Hemoglobin 31.3 pg (26-34); Mean Corpuscular Volume 94.3 fl (80-100); Mean Platelet Volume 9.7 fl (7.4-10.4); Monocytes Absolute Auto 0.7 K/mm3 (0.1-0.6); Monocytes Percent Auto 7.4 % (2.6-8.5); Neutrophils Absolute Auto 4.8 K/mm3 (1.3-6.7); Neutrophils Percent Auto 54.9 % (45.5-73.1); Platelet Count Result 206 k/mm3 (150-375); Red Blood Count 4.57 M/mm3 (4.6-6.20); Red Cell Distribution Width 13.8 % (11.5-14.5); White Blood Count 8.8 K/mm3 (4.5-10.0)
[2024-07-10 10:09] LABS: Anion Gap 3 mmol/L (4-12); Blood Urea Nitrogen 14 mg/dL (9-20); Calcium 8.7 mg/dL (8.4-10.2); Carbon Dioxide 33 mmol/L (22-30); Chloride 103 mmol/L (98-107); Estimated CRCL calculation 185 ml/min; Estimated Glomerular Filt Rate > 60; Glucose 118 mg/dL (65-110); Potassium 3.9 mmol/L (3.4-5.0); Sodium 139 mmol/L (137-145)
[2024-07-10 10:10] LABS: Prothrombin Time 13.4 Seconds (11.1-14.7)
[2024-07-10 10:11] LABS: Partial Thromboplastin Time 28.9 Seconds (22.3-36.8)
--- NOTE | 2024-07-10 10:35 | ED.EXTPRO ---
HPI - Extremity Problem General Chief complaint: Extremity Problem,Nontraumatic Stated complaint: R leg swelling Time Seen by Provider: 07/10/24 09:09 Source: patient Mode of arrival: ambulatory Limitations: no limitations History of Present Illness HPI Narrative: This is a 58-year-old male that presents to the emergency department for right lower extremity swelling. Ongoing over the last couple of weeks. Associated with redness and pain. Also reports he has been more short of breath with exertion. He is a smoker. Denies any current known medical problems. Denies fevers or chest pain. Related Data Home Medications Medication Instructions Recorded Confirmed cetirizine 10 mg tablet mg 05/19/23 fluticasone propionate 50 intranasal 05/19/23 mcg/actuation nasal spray,suspension Allergies Allergy/AdvReac Type Severity Reaction Status Date / Time codeine Allergy Itching Verified 07/10/24 11:51 Review of Systems Review of Systems: CONSTITUTIONAL: Denies fever CARDIOVASCULAR: Reports edema. Denies chest pain RESPIRATORY: Reports dyspnea. All systems reviewed & are unremarkable except as noted in HPI and below [facility] Past Medical History Medical History Drug use Clean since 2019 Kidney stone Social History Social History Smoking status: Current every day smoker Alcohol use details: occasional Other substance usage details: none Exam Narrative: GENERAL: Well-appearing, obese, and in no acute distress. HEAD: Normocephalic, atraumatic. EYES: EOMI. NECK: Supple. No JVD CHEST: Clear to auscultation. No respiratory distress. No wheezes rales or rhonchi HEART: Regular rate and rhythm. No murmur heard. Normal peripheral pulses. EXTREMITIES: Normal range of motion. Bilateral 1+ pitting lower extremity edema, R>L. There is overlying redness and warmth bilaterally, R>L. Normal DP pulses. Normal sensation SKIN: Warm, dry, no rash. NEURO: No focal deficits. Alert and oriented x3. PSYCH: Normal mood and affect Course Course Emergency Course: Patient signed out AMA before finishing his workup/further treatment Vital Signs Vital signs: Vital Signs Pulse Rate 85 07/10/24 09:02 Respiratory Rate 22 H 07/10/24 09:02 Blood Pressure 158/57 H 07/10/24 09:02 Pulse Oximetry 96 07/10/24 09:02 Oxygen Delivery Room Air 07/10/24 09:02 Temperature 98 F 07/10/24 12:00 Pulse Rate 86 07/10/24 12:00 Respiratory Rate 18 07/10/24 12:00 Blood Pressure 155/90 H 07/10/24 12:00 Pulse Oximetry 97 07/10/24 12:00 Oxygen Delivery Room Air 07/10/24 09:02 MDM - Extremity (Nontraumatic) MDM Narrative Medical decision making narrative: Patient presents to the emergency department for right lower extremity pain and swelling. Also reporting shortness of breath. He is afebrile and nontoxic appearing. His vitals are stable. Lungs are clear on exam. Oxygen saturation is normal on room air. CBC without leukocytosis. Metabolic panel without acute findings. Inflammatory markers are elevated. EKG without acute changes and his baseline troponin is negative. Right lower extremity venous Doppler without evidence of DVT. Chest x-ray shows prominent lung markings in the lower lobe. Early pneumonia cannot be excluded. Do a D-dimer elevated. Attempted at CTA, but patient was too claustrophobic. Patient then signed out AMA before finishing his workup/further treatment. I did send antibiotics to the pharmacy to treat for cellulitis of his right leg Differential Diagnosis Differential diagnosis: Likely cellulitis, deep vein thrombosis of lower extremity and other (PE, pneumonia, heart failure, venous stasis changes) Lab Data Attestation: I reviewed the patient's lab results. 07/10/24 09:55 07/10/24 09:56 Labs: Lab Results 07/10/24 0
[2024-07-10 10:56] LABS: D Dimer 1.72 ug/mL (<0.48)
[2024-07-10 11:04] LABS: CRP 3.7 mg/dL (<1.0)
[2024-07-10 11:12] LABS: NT Pro B Type Natriuretic Pept 32 pg/mL (19.9-100); Troponin I < 0.012 ng/mL (0.000-0.034)
[2024-07-10 11:36] LABS: Erythrocyte Sedimentation Rate 44 mm/hr (0-20)
--- NOTE | 2024-07-10 11:56 | PC.NURSE ---
pt anxious about care being provided to pt in next room, pt asking to leave. willing to sign out AMA. EDP made aware, pt left AMA pt aware that antibx will be sent to [facility] in [place]
[2024-07-10 12:00] VITALS: BP 155/90; PULSE 86; RESP 18; TEMP 36.6; O2SAT 97
== END 2024-07-10 12:02 | disposition left against medical advice (07) ==
PROVIDERS: Emergency Provider Physician Assistant; PCP Nurse Practitioner
DX: L03.115 Cellulitis of right lower limb (principal); F17.200 Nicotine dependence, unspecified, uncomplicated; Z87.442 Personal history of urinary calculi
CPT/HCPCS: 36415; 71046; 80048; 83880; 84484; 85025; 85380; 85610; 85652; 85730; 86140; 93005; 93971; 99284

== ENCOUNTER 2024-12-09 10:11 | Emergency (ER) | payer OTHER, SELFPAY ==
[2024-12-09 10:12] VITALS: BP 183/93; PULSE 69; RESP 16; TEMP 36.6; O2SAT 99
--- NOTE | 2024-12-09 10:33 | ED.ABDPAIN ---
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 HISTORY OF KIDNEY STONE. HE DENIES ANY FEVER OR CHILLS. Related Data Home Medications ?Medication ?Instructions ?Recorded ?Confirmed ?Last Taken ?Type cetirizine 10 mg tablet mg 05/19/23 Unknown History fluticasone propionate 50 intranasal 05/19/23 Unknown History mcg/actuation nasal spray,suspension Allergies Allergy/AdvReac Type Severity Reaction Status Date / Time codeine Allergy Itching Verified 07/10/24 11:51 Review of Systems Review of Systems: All systems reviewed & are unremarkable except as noted in HPI and below PMFSH Past Medical History Medical History Drug use Clean since 2019 Kidney stone Social History Social History Smoking status: Current every day smoker Alcohol use details: occasional Other substance usage details: none Exam Narrative: GENERAL APPEARANCE: WELL-DEVELOPED, WELL-NOURISHED, MORBIDLY OBESE HEAD: NORMOCEPHALIC, NONTRAUMATIC EYES: CLEAR CONJUNCTIVA ENT: OROPHARYNX NORMAL, EARS NORMAL, NOSE NORMAL NECK: SUPPLE, NONTENDER CHEST AND RESPIRATORY: AIRWAY PATENT, NO RESPIRATORY DISTRESS, NO ACCESSORY MUSCLE USE HEART: REGULAR RATE/RHYTHM ABDOMEN: SOFT, MILD TENDERNESS LEFT FLANK AND LEFT GROIN, NO BRUISES OR SWELLING OR RASH VASCULAR: NORMAL PERIPHERAL PULSES, NORMAL CAPILLARY REFILL. 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, NO GROSS MOTOR DEFICIT Course Consultations Consultation #1: DR GLOVER OUTPATIENT FOLLOW-UP Date: 12/09/24 Time: 14:14 Vital Signs Vital signs: Vital Signs Temperature 36.6 C 12/09/24 10:12 Pulse Rate 69 12/09/24 10:12 Respiratory Rate 16 12/09/24 10:12 Blood Pressure 183/93 H 12/09/24 10:12 Pulse Oximetry 99 12/09/24 10:12 Temperature 36.6 C 12/09/24 10:12 Pulse Rate 69 12/09/24 10:12 Respiratory Rate 16 12/09/24 10:12 Blood Pressure 183/93 H 12/09/24 10:12 Pulse Oximetry 99 12/09/24 10:12 MDM - Abdominal Pain MDM Narrative Medical decision making narrative: I THINK PROBABLY URINE AWAY WORSE ON THE HEAD PATIENT PRESENTS WITH LEFT FLANK PAIN VITAL SIGNS SHOWING BLOOD PRESSURE 183/93 PHYSICAL EXAMINATION SHOWING MILD TENDERNESS LEFT FLANK LEFT LOWER QUADRANT DIFFERENTIAL DIAGNOSIS INCLUDE KIDNEY STONE, URINARY TRACT INFECTION, COLITIS, DIVERTICULITIS, CONSTIPATION BLOOD WORKUP TODAY INCLUDES CBC, CMP, LIPASE SHOWED WBC OF 11.6 OTHERWISE WITHIN NORMAL LIMIT URINE ANALYSIS SHOWING TRACE OF LEUKOCYTE ESTRACE, 3-[address] ABDOMEN AND PELVIS WITHOUT CONTRAST SHOWED Differential Diagnosis Differential diagnosis: Likely other ( ABOVE) Medical Records Attestation: I reviewed the patient's medical records. Lab Data Attestation: I reviewed the patient's lab results. 12/09/24 12:32 12/09/24 12:32 Labs: Lab Results 12/09/24 12/09/24 Range/Units 12:32 13:02 WBC 11.6 H (4.5-10.0) K/mm3 RBC 5.08 (4.6-6.20) M/mm3 Hgb 15.0 (14.0-18.0) g/dL Hct 44.5 (42.0-52.0) % MCV 87.6 (80-100) fl MCH 29.5 (26-34) pg MCHC 33.7 (32-36) g/dl RDW 13.6 (11.5-14.5) % Plt Count 258 (150-375) k/mm3 MPV 9.5 (7.4-10.4) fl Immature Gran % (Auto) 0.3 (0-0.5) % Neut % (Auto) 77.7 H (45.5-73.1) % Lymph % (Auto) 15.0 L (18.3-44.2) % [place] % (Auto) 6.0 (2.6-8.5) % Eos % (Auto) 0.7 (0-4.4) % Baso % (Auto) 0.3 (0.2-1.2) % Lymph # (Auto) 1.74 (0.9-3.2) K/mm3 [place] # (Auto) 0.7 H (0.1-0.6) K/mm3 Eos # (Auto) 0.1 (0-0.3) K/mm3 Baso # (Auto) 0.0 (0.0-0.1) K/mm3 Abs Immat Gran (auto) 0.03 (0.00-0.031) K/mm3 Absolute Neuts (auto) 9.0 H (1.3-6.7) K/mm3 Absolute Nucleated RBC 0.000 (0.0-0.012) K/mm3 Nucleated RBC % 0.0 (0.0-0.2) % Sodium 138 (137-145) mmol/L Potassium 4.0 (3.4-5.0) mmol/L Chloride 103 (98-107) mmol/L Carbon Dioxide 25 (22-30) mmol/L Anion Gap 10 (4-12) mmol/L BUN 19 (9-20) mg/dL Creatinine 0.90 (0.7-1.3) mg/dL Estim Creat Clear Calc 136 ml/min Estimated GFR > 60 (59 - ) Glucose 112 H (65-110) mg/dL Calcium 8.9 (8.4-10.2) mg/dL Total Bilirubin 0.8 (0.2-1.3) mg/dL AST 27 (17-59) U/L ALT 18 (6-50) U/L Alkaline Phosphatase 78 (38-126) U/L Total Protein 7.0 (6.3-8.2) g/dL Albumin 3.9 (3.5-5.1) g/dL Lipase 32 (23-300) U/L Urine Color Yellow (Yellow) Urine Appearance Clear (Clear) Urine pH 7.5 (5.0-9.0) Ur Specific [place] 1.021 (1.001-1.035) Urine Protein Trace (Negative) mg/dL Urine Glucose (UA) Negative (Negative) mg/dL Urine Ketones Negative (Negative) mg/dL Ur Blood (Man) Negative (Negative) Urine Nitrate Negative (Negative) Urine Bilirubin Negative (Negative) Urine Urobilinogen 1.0 (<2.0) mg/dL Leukocyte Esterase Rfl Trace H (Negative) SNEHA/UL Urine RBC 3-5 H (0-2) /hpf Urine WBC 0-5 (0-3) /hpf Ur Squamous Epith Cells None seen (Few) /hpf Urine Bacteria None seen /hpf Urine Casts 0-2 Imaging Data Radiologist's impression: ITS Impressions Abdomen/Pelvis CT 12/09/24 11:34 IMPRESSION: 1. Left nephrolithiasis with obstructing 9 mm from the proximal left ureter with moderate left hydronephrosis with perinephric stranding. Correlate with urinalysis to exclude associated ascending urinary tract infection. 2. Cholelithiasis. Critical Care Time Critical Care Time Critical Care Time: No Discharge Plan Discharge Clinical Impression: Kidney stone on left side Instructions: Antibiotic Form, Kidney Stones (ED) Additional Instructions: RETURN IF SYMPTOMS ARE WORSENING , CALL YOUR FAMILY PHYSICIAN FOR APPOINTMENT, TAKE TYLENOL, IBUPROFEN NEEDED FOR ACHES AND PAIN, CONTINUE HOME MEDICATIONS. ENCOURAGE FLUID INTAKE Patient Language: German Prescriptions: New ondansetron 4 mg tablet,disintegrating 4 mg PO Q4H 0 Days Qty: 10 0RF Rx Instructions: 1st dose 1-2 hr before radiation tamsulosin [Flomax] 0.4 mg capsule 0.4 mg PO DAILY Qty: 10 0RF ciprofloxacin HCl [Cipro] 500 mg tablet 500 mg PO Q12H Qty: 10 0RF No Action cetirizine 10 mg tablet fluticasone propionate 50 mcg/actuation spray,suspension INTRANASAL prednisone 50 mg tablet 50 mg PO DAILY 5 Days Qty: 5 0RF albuterol sulfate [ProAir HFA] 90 mcg/actuation HFA aerosol inhaler 2 puff INHALATION Q4-6H PRN (Reason: shortness of breath or wheezing) Qty: 18 0RF (DME) BreatheRite MDI Spacer Spacer See Rx Instructions .ROUTE .MEDSUPPLY Qty: 1 0RF Rx Instructions: As directed cephalexin 500 mg capsule 500 mg PO Q6H 10 Days Qty: 40 0RF Follow-up/Referrals: Rickey Chapa MD [Physician] - 12/11/24 Norberto,Yung Ferrara APRN [Primary Care Provider] -
[2024-12-09] MEDS: HYDROmorphone HCL INJ (*CRX) 1 MG/ML SYR 0.5 MG IV PUSH (12:35)
[2024-12-09] MEDS: TAMSULOSIN HCL 0.4 MG CAPSULE PO (12:36)
[2024-12-09] MEDS: ONDANSETRON INJ 4 MG/2 ML VIAL IV PUSH (12:36)
[2024-12-09] MEDS: SODIUM CHLORIDE 0.9% IV 1,000 ML 999 ML IV CONT (12:36)
[2024-12-09 12:42] LABS: Basophils Percent Auto 0.3 % (0.2-1.2); Eosinophils Absolute Auto 0.1 K/mm3 (0-0.3); Eosinophils Percent Auto 0.7 % (0-4.4); Hematocrit 44.5 % (42.0-52.0); Immature Granulocyte Absolute 0.03 K/mm3 (0.00-0.031); Immature Granulocyte Percent A 0.3 % (0-0.5); Lymphocytes Absolute Auto 1.74 K/mm3 (0.9-3.2); Mean Corpuscular HGB Conc 33.7 g/dl (32-36); Mean Corpuscular Hemoglobin 29.5 pg (26-34); Mean Corpuscular Volume 87.6 fl (80-100); Mean Platelet Volume 9.5 fl (7.4-10.4); Monocytes Absolute Auto 0.7 K/mm3 (0.1-0.6); Neutrophils Percent Auto 77.7 % (45.5-73.1); Platelet Count Result 258 k/mm3 (150-375); Red Blood Count 5.08 M/mm3 (4.6-6.20); Red Cell Distribution Width 13.6 % (11.5-14.5); White Blood Count 11.6 K/mm3 (4.5-10.0)
[2024-12-09 12:50] LABS: Alanine Aminotransferase 18 U/L (6-50); Albumin Level 3.9 g/dL (3.5-5.1); Alkaline Phosphatase 78 U/L (38-126); Anion Gap 10 mmol/L (4-12); Aspartate Amino Transferase 27 U/L (17-59); Bilirubin,Total 0.8 mg/dL (0.2-1.3); Blood Urea Nitrogen 19 mg/dL (9-20); Calcium 8.9 mg/dL (8.4-10.2); Carbon Dioxide 25 mmol/L (22-30); Chloride 103 mmol/L (98-107); Estimated CRCL calculation 136 ml/min; Estimated Glomerular Filt Rate > 60; Glucose 112 mg/dL (65-110); Lipase 32 U/L (23-300); Sodium 138 mmol/L (137-145)
--- NOTE | 2024-12-09 13:02 | PC.NURSE ---
Pt reports unable to provide urine sample at this time, provided with urinal. Pt verbalizes understanding to use call light after collecting sample.
[2024-12-09 13:14] LABS: Add Urine Microscopic? YES; Appearance Urine Clear (Clear); Bacteria Urine None Seen /hpf; Bilirubin Urine Negative (Negative); Blood Urine Negative (Negative); Color Urine Yellow (Yellow); Glucose Urine UA Negative (Negative); Ketones Urine Negative (Negative); Leukocyte Esterase Ur Trace LEU/UL (Negative); Nitrate Urine Negative (Negative); Non Pathogenic Casts 0-2; Protein Urine Trace mg/dL (Negative); Specific Grav Ur 1.021 (1.001-1.035); Squamous Epithelial Cell Urine None Seen /hpf (Few); WBC Urine 0-5 /hpf (0-3); pH Urine 7.5 (5.0-9.0)
[2024-12-09] MEDS: KETOROLAC 30 MG/ML VIAL (*BKC) IV PUSH (14:32)
[2024-12-09 14:37] VITALS: BP 156/76; PULSE 69; RESP 18; TEMP 36.8; O2SAT 97
--- NOTE | 2024-12-09 14:43 | WPDURCON ---
Assessment and Plan Assessment and plan (1) Kidney stone on left side: Code(s): N20.0 - Calculus of kidney Status: Acute Plan Discussed trial of MET, URS, ESWL. Cannot treat the stone on the weekend with ESWL, and he strongly desires to avoid a stent. He elects for MET, we discussed the low but real possibility of stone passage. Discussed that ESWL would be less likely to be successful with a BMI approaching 60. He will go home and call our office for follow up. Tamsulosin pain meds sunitha. Urology Consult Note HPI Date Seen: 12/09/24 Primary Care Provider: Yung Thornton, EYE TECHNICIAN Consult Narrative Narrative: Gopi Christianson Jr. is a 59 year old male with a history of stones currently here for flank pain. His pain is controlled in the ED and he desires to go home. Creat 0.9 WBC 11 UA with 3-[address] with a 9mm proximal left ureteral stone. He had a stone a few years ago and was counseled on a URS and chickened out because of the necessity of transurethral approach and never followed up. Review of Systems Review of Systems: All systems reviewed & are unremarkable except as noted in HPI and below PMFSH Past Medical History Medical History Drug use Clean since 2019 Kidney stone Social History Social History Smoking status: Current every day smoker Alcohol use details: occasional Other substance usage details: none Meds Home Medications and Allergies Home Medications ?Medication ?Instructions ?Recorded ?Confirmed ?Type albuterol sulfate 90 mcg/actuation 2 puff inhalation Q4-6H PRN 05/19/23 Rx aerosol inhaler (ProAir HFA) shortness of breath or wheezing #18 grams cetirizine 10 mg tablet mg 05/19/23 History fluticasone propionate 50 intranasal 05/19/23 History mcg/actuation nasal spray,suspension inhalational spacing device #1 ea 05/19/23 Rx (BreatheRite MDI Spacer) prednisone 50 mg tablet 50 mg PO DAILY 5 days #5 tabs 05/19/23 Rx cephalexin 500 mg capsule 500 mg PO Q6H 10 days #40 caps 07/10/24 Rx ciprofloxacin HCl 500 mg tablet 500 mg PO Q12H #10 tabs 12/09/24 Rx (Cipro) ondansetron 4 mg disintegrating 4 mg PO Q4H 3 doses #10 tabs 12/09/24 Rx tablet tamsulosin 0.4 mg capsule (Flomax) 0.4 mg PO DAILY #10 caps 12/09/24 Rx Allergies Allergy/AdvReac Type Severity Reaction Status Date / Time codeine Allergy Itching Verified 07/10/24 11:51 Vital Signs Vital Signs - 24 hr 12/09/24 10:12 12/09/24 14:37 Temperature 36.6 C 36.8 C Pulse Rate 69 69 Respiratory Rate 16 18 Blood Pressure 183/93 H 156/76 H Pulse Oximetry 99 97 Exam Narrative: comfortable, missing some teeth, morbidly obese in a wheelchair, alert oriented conversive and pleasant, no acute distress Results Labs 12/09/24 12:32 12/09/24 12:32 Labs: Short CBC 12/09/24 Range/Units 12:32 WBC 11.6 H (4.5-10.0) K/mm3 Hgb 15.0 (14.0-18.0) g/dL Hct 44.5 (42.0-52.0) % Plt Count 258 (150-375) k/mm3 BMP 12/09/24 12:32 Sodium 138 Potassium 4.0 Chloride 103 Carbon Dioxide 25 BUN 19 Creatinine 0.90 Glucose 112 H Calcium 8.9 Liver Function 12/09/24 Range/Units 12:32 Total Bilirubin 0.8 (0.2-1.3) mg/dL AST 27 (17-59) U/L ALT 18 (6-50) U/L Alkaline Phosphatase 78 (38-126) U/L Albumin 3.9 (3.5-5.1) g/dL Urine 12/09/24 Range/Units 13:02 Urine Color Yellow (Yellow) Urine Appearance Clear (Clear) Urine pH 7.5 (5.0-9.0) Ur Specific [place] 1.021 (1.001-1.035) Urine Protein Trace (Negative) mg/dL Urine Glucose (UA) Negative (Negative) mg/dL
== END 2024-12-09 14:39 | disposition home or self-care (01) ==
PROVIDERS: Emergency Provider Emergency Medicine; PCP Nurse Practitioner
DX: N13.2 Hydronephrosis with renal and ureteral calculous obstruction (principal); F17.200 Nicotine dependence, unspecified, uncomplicated; Z87.442 Personal history of urinary calculi; K80.20 Calculus of gallbladder without cholecystitis without obstruction
CPT/HCPCS: 36415; 74176; 80053; 81001; 83690; 85025; 96361; 96374; 96375; 99284; A9270; J1171; J1885; J2405; J7030